=== PATIENT | female | born 1980 | race Two or more races ===

== ENCOUNTER 2020-05-10 00:14 | Inpatient (IN) | payer OTHER ==
[~2020-05-10] VITALS: Ht 162.6 cm; Wt 2.7 kg
[2020-05-10] MEDS ORDERED: PRENATAL TABLE1 EAC1 PO (01:07)
[2020-05-13] MEDS ORDERED: KETO10TA2 PO (17:59)
[2020-05-13] MEDS ORDERED: OXYC1TAB9 PO (18:01)
== END 2020-05-13 18:11 | disposition home or self-care (01) | DRG 785 ==
LOC: OBS/DEL 00:14 → O/R 11:47 → OB/GYN 11:47 → LDR 11:47 → O/R 19:41 → OB/GYN 05-11 00:07
PROVIDERS: ADMIT Obstetrics & Gynecology; ATTEND Obstetrics & Gynecology
PROC: 0UB70ZZ Excision of Bilateral Fallopian Tubes, Open Approach (ICD-10-PCS; 2020-05-10)
PROC: 4A1HXFZ Monitoring of Products of Conception, Cardiac Rhythm, External Approach (ICD-10-PCS; 2020-05-10)
PROC: 10D00Z1 Extraction of Products of Conception, Low, Open Approach (ICD-10-PCS; principal; 2020-05-10 19:00)
DX: O65.5 Obstructed labor due to abnormality of maternal pelvic organs (principal); O34.211 Maternal care for low transverse scar from previous cesarean delivery; O13.4 Gestational [pregnancy-induced] hypertension without significant proteinuria, complicating childbirth; O40.3XX0 Polyhydramnios, third trimester, not applicable or unspecified; Z30.2 Encounter for sterilization; Z3A.37 37 weeks gestation of pregnancy; Z37.0 Single live birth
CPT/HCPCS: 73720